=== PATIENT | male | born 1990 | race Two or more races ===

== ENCOUNTER 2024-03-06 17:00 | Emergency (ER) | payer MEDICAID ==
[~2024-03-06] VITALS: Ht 180.3 cm; Wt 60.0 kg
[2024-03-06 18:33] VITALS: BP 131/94; PULSE 133; RESP 18; TEMP 98.1; O2SAT 96
[2024-03-06] MEDS ORDERED: AMPH10TA2 PO (19:22)
== END 2024-03-06 19:32 | disposition home or self-care (01) ==
LOC: ER 17:00
DX: F98.8 Other specified behavioral and emotional disorders with onset usually occurring in childhood and adolescence (principal); Z76.0 Encounter for issue of repeat prescription

== ENCOUNTER 2024-04-17 21:34 | Emergency (ER) | payer MEDICAID ==
[~2024-04-17] VITALS: Ht 180.3 cm; Wt 61.4 kg
[~2024-04-17 21:34] MED LIST: AMPH10TA2 PO
[2024-04-17 21:51] VITALS: BP 136/102; PULSE 88; RESP 18; TEMP 98.2; O2SAT 96
== END 2024-04-18 00:39 | disposition home or self-care (01) ==
LOC: ER 21:34
DX: F90.9 Attention-deficit hyperactivity disorder, unspecified type (principal); Z76.0 Encounter for issue of repeat prescription

== ENCOUNTER 2024-05-25 12:45 | Emergency (ER) | payer MEDICAID ==
[~2024-05-25] VITALS: Ht 157.5 cm; Wt 60.0 kg
[2024-05-25 13:50] VITALS: BP 142/102; PULSE 103; RESP 18; TEMP 97.6; O2SAT 96
[2024-05-25] MEDS ORDERED: AMPH10TA2 PO (14:37)
== END 2024-05-25 14:53 | disposition home or self-care (01) ==
LOC: ER 12:45
DX: F90.9 Attention-deficit hyperactivity disorder, unspecified type (principal); Z76.0 Encounter for issue of repeat prescription; Z79.899 Other long term (current) drug therapy

== ENCOUNTER 2024-06-06 16:59 | Emergency (ER) | payer MEDICAID ==
[~2024-06-06] VITALS: Ht 180.3 cm; Wt 61.5 kg
[2024-06-06 18:51] VITALS: BP 135/95; PULSE 90; RESP 18; TEMP 97.9; O2SAT 97
[2024-06-06] MEDS ORDERED: [UNRECOGNIZED DRUG - CODE] PO ×2 (19:08→19:10)
== END 2024-06-06 19:18 | disposition home or self-care (01) ==
LOC: ER 16:59
DX: Z76.0 Encounter for issue of repeat prescription (principal); F90.9 Attention-deficit hyperactivity disorder, unspecified type